=== PATIENT | male | born 1995 | race Caucasian/White ===

== ENCOUNTER 2021-01-30 01:21 | Emergency (ER) | payer BC ==
[~2021-01-30] VITALS: Ht 170.2 cm; Wt 104.3 kg
[2021-01-30] MEDS ORDERED: HYDROCODON-ACE1 EA10 PO (02:48)
[2021-01-30] MEDS ORDERED: ONDANSETRON ODT4 MG PO (02:48)
[2021-01-30] MEDS ORDERED: FLOMAX0.4 MG PO (02:48)
== END 2021-01-30 03:11 | disposition home or self-care (01) ==
LOC: ED 01:21
DX: N13.2 Hydronephrosis with renal and ureteral calculous obstruction (principal); Z88.0 Allergy status to penicillin
CPT/HCPCS: 74176; 80053; 81001; 85025; 96374; 96375; 99284-25; J1885; J2270; J2405; J7030